=== PATIENT | female | born 1950 | race Caucasian/White ===

== ENCOUNTER → 2016-09-05 | Outpatient (REF) | payer MEDICARE, BC ==
[~2016-09-05] MED LIST: ANAS1TAB PO; GLUC1CAP9 PO; LEVOPOW21; NAPR500T2 PO; RANI15TA PO; [UNRECOGNIZED DRUG - OTHER]; vitamin D2
[2016-09-06 14:14] LABS: HIV SCRN NEGATIVE (NEGATIVE); HIV SCRN1 NEGATIVE (NEGATIVE)
[2016-09-06 14:15] LABS: CONTROL LINE INT CTR LINE PRESENT
== END ==
LOC: M LAB REF 14:08
PROVIDERS: ATTEND Nurse Practitioner Adult Health
DX: Z01.89 Encounter for other specified special examinations (principal)

== ENCOUNTER → 2017-08-08 | Outpatient (CLI) | payer MEDICARE, BC | LOC: M WHC 11:32 | DX: M81.0 Age-related osteoporosis without current pathological fracture (principal); C50.919 Malignant neoplasm of unspecified site of unspecified female breast; C50.812 Malignant neoplasm of overlapping sites of left female breast | CPT/HCPCS: 77080 ==

== ENCOUNTER → 2020-10-25 | Outpatient (CLI) | payer MEDICARE, BC ==
[~2020-10-25] MED LIST changes: -ANAS1TAB PO; +ANAS1TAB2 PO; +CALC-205 PO; +IBUP-1114 PO; +LETR2.5T2 PO; +NAPR-885 PO; -NAPR500T2 PO; +PEPC1TAB5 PO; +PROL60SO SC; +SYNT75TA PO; +VALA1TAB5 PO
--- NOTE | 2020-10-25 12:05 | DEXAMM ---
INDICATION: OSTEOPENIA,BREAST CA. COMPARISON: Comparison DEXA studies August 08, 2017, August 02, 2015, and March 03, 2004.. TECHNIQUE: Bone density was measured using dual-energy x-ray absorptionmetry (DEXA). FINDINGS: AP SPINE L1-L4 BMD 0.973 g/cm2 Young Adult T-Score -1.8 Age Matched Z-Score -0.1. LT FEMUR, TOTAL BMD 0.841 g/cm2 Young Adult T-Score -1.3 Age Matched Z-Score 0.2. LT NECK BMD 0.823 g/cm2 Young Adult T-Score -1.5 Age Matched Z-Score 0.2. RT FEMUR, TOTAL BMD 0.906 g/cm2 Young Adult T-Score -0.8 Age Matched Z-Score 0.7. RT NECK BMD 0.832 g/cm2 Young Adult T-Score -1.5 Age Matched Z-Score 0.3. IMPRESSION: There is low bone density of the spine. There is low bone density of the left hip. There is low bone density of the right hip. The density of the spine has increased 11.3% since the initial exam on March 03, 2004. The density of the spine increased 5.5% since most recent exam on August 08, 2017. The density of the left hip has increased 1.8% since initial exam on March 03, 2004. The density of the left hip has increased 0.8% since most recent exam on August 08, 2017. The density of the right hip has increased 4.4% since the initial exam on March 03, 2004. The density of the right hip has increased 5.5% since the most recent exam on August 08, 2017. FOLLOW-UP: Recommendation for the next bone density exam: 2 years. <Electronically signed by Chino Campbell > 10/25/20 [id number]
== END ==
LOC: M WHC 10:33
PROVIDERS: ATTEND Specialist
DX: M85.88 Other specified disorders of bone density and structure, other site (principal); M85.851 Other specified disorders of bone density and structure, right thigh; M85.852 Other specified disorders of bone density and structure, left thigh; Z85.3 Personal history of malignant neoplasm of breast

== ENCOUNTER → 2021-01-05 | Outpatient (CLI) | payer MEDICARE, BC ==
--- NOTE | 2021-01-05 10:50 | REP ---
INDICATION: PAIN. COMPARISON: Comparison cervical spine radiographs are from January 31, 2016.. TECHNIQUE: Seven views including flexion extension lateral radiographs. FINDINGS: Lateral views done in flexion, extension, and neutral position demonstrate straightening and slight reversal of the normal cervical lordosis. There is reduced flexion extension range of motion but no subluxation or instability is appreciated. These findings are essentially unchanged from the comparison study of January 31, 2016. There is discogenic spurring anteriorly at the each level, most pronounced at C4-5 C5-6 and C6-7. Cervical vertebral body heights are preserved. Alignment is otherwise normal. 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 This is most pronounced on the left at C3-4. Open mouth odontoid view is unremarkable. Oblique images demonstrate mild neural foraminal encroachment on the left at C3-4 due to facet hypertrophy and minimal uncovertebral hypertrophy. On the right, there is mild encroachment at C4-5. These findings are slightly more prominent than on the 2016 prior study. IMPRESSION: Degenerative spondylosis changes as noted above. <Electronically signed by Chino Campbell > 01/05/21 [id number]
--- NOTE | 2021-01-05 10:51 | REP ---
INDICATION: PAIN. COMPARISON: None. TECHNIQUE: Five views of the right knee are provided. FINDINGS: Five views of the right knee demonstrate normal bones, joints, and soft tissues. No fracture or subluxation is seen. No opaque foreign body noted. IMPRESSION: Negative right knee series. <Electronically signed by Chino Campbell > 01/05/21 [id number]
== END ==
LOC: M WUC 10:03
PROVIDERS: ATTEND Nurse Practitioner Adult Health
DX: M47.812 Spondylosis without myelopathy or radiculopathy, cervical region (principal); M54.2 Cervicalgia; M25.561 Pain in right knee

== ENCOUNTER → 2021-03-28 | Outpatient (CLI) | payer MEDICARE, BC ==
[~2021-03-28] MED LIST changes: +CIDA500T2 PO
== END ==
LOC: M LABSMTC 08:43
PROVIDERS: ATTEND Anesthesiology
DX: Z01.812 Encounter for preprocedural laboratory examination (principal); Z20.822 Contact with and (suspected) exposure to COVID-19

== ENCOUNTER 2021-03-31 11:15 | Day surgery (SDC) | payer MEDICARE, BC ==
[~2021-03-31] VITALS: Ht 168.9 cm; Wt 71.6 kg
[~2021-03-31 11:15] MED LIST changes: +NS 1,000 ML IV ONE
[2021-03-31] MEDS ORDERED: propofoL 200 MG/20 ML VIAL As Ordered ONE ×2 (13:04→14:21)
[2021-03-31] MEDS ORDERED: LIDOCAINE 2% 100MG/5ML SDV (FOR ANES.) As Ordered ONE (13:04)
--- NOTE | 2021-03-31 14:30 | ROOR ---
Patient Name: Pati Pierce Procedure Date: 03/31/2021 2:05 PM Date of : 1950 Age: 70 Room: [facility] Gender: Female Note Status: Finalized Procedure: Colonoscopy Indications: Screening for colorectal malignant neoplasm Providers: Pasquale Aguilar Jr, MD Referring MD: Mirna Baltazar NP Requesting Provider: Medicines: Propofol per Anesthesia Complications: No immediate complications. Procedure: Pre-Anesthesia Assessment: - Prior to the procedure, a History and Physical was performed, and patient medications and allergies were reviewed. The patient is competent. The risks and benefits of the procedure and the sedation options and risks were discussed with the patient. All questions were answered and informed consent was obtained. Patient identification and proposed procedure were verified by the physician and the nurse in the pre-procedure area and in the procedure room. Mental Status Examination: alert and oriented. Airway Examination: normal oropharyngeal airway and neck mobility. Respiratory Examination: clear to auscultation. CV Examination: normal. ASA Grade Assessment: II - A patient with mild systemic disease. After reviewing the risks and benefits, the patient was deemed in satisfactory condition to undergo the procedure. The anesthesia plan was to use moderate sedation / analgesia (conscious sedation). Immediately prior to administration of medications, the patient was re-assessed for adequacy to receive sedatives. The heart rate, respiratory rate, oxygen saturations, blood pressure, adequacy of pulmonary ventilation, and response to care were monitored throughout the procedure. The physical status of the patient was re-assessed after the procedure. The Colonoscope was introduced through the anus and advanced to the cecum, identified by appendiceal orifice and ileocecal valve. The colonoscopy was performed without difficulty. The patient tolerated the procedure well. The quality of the bowel preparation was adequate. Findings: The rectum, ascending colon, cecum, appendiceal orifice and ileocecal valve appeared normal. Many polyps were found in the recto-sigmoid colon, sigmoid colon, descending colon and transverse colon. The polyps were small in size. These polyps were removed with a cold snare. Resection and retrieval were complete. Impression: - The rectum, ascending colon, cecum, appendiceal orifice and ileocecal valve are normal. - Many small polyps at the recto-sigmoid colon, in the sigmoid colon, in the descending colon and in the transverse colon, removed with a cold snare. Resected and retrieved. Recommendation: - Discharge patient to home (ambulatory). - Repeat colonoscopy in 5-10 years for surveillance based on pathology results. Procedure Code(s): --- Professional --- 97332, Colonoscopy, flexible; with removal of tumor(s), polyp(s), or other lesion(s) by snare technique Diagnosis Code(s): --- Professional --- Z12.11, Encounter for screening for malignant neoplasm of colon K63.5, Polyp of colon CPT copyright 2019 [employer]. All rights reserved. The codes documented in this report are preliminary and upon lead caster review may be revised to meet current compliance requirements. Pasquale Aguilar MD Pasquale Aguilar Jr, MD 03/31/2021 2:30:30 PM Electronically signed by Pasquale Aguilar Jr, MD Number of Addenda: 0 Note Initiated On: 03/31/2021 2:05 PM Estimated Blood Loss: Estimated blood loss: none.
[2021-03-31 15:00] VITALS: BP 136/73
== END 2021-03-31 15:05 | disposition home or self-care (01) ==
LOC: M OPP 11:15
PROVIDERS: ATTEND Surgery
DX: Z12.11 Encounter for screening for malignant neoplasm of colon (principal); K63.5 Polyp of colon; Z79.899 Other long term (current) drug therapy; Z88.0 Allergy status to penicillin; Z88.8 Allergy status to other drugs, medicaments and biological substances

== ENCOUNTER → 2022-10-04 | Outpatient (REF) | payer MEDICARE, BC ==
[~2022-10-04] MED LIST changes: +FERR1TAB8 PO; -NS 1,000 ML IV ONE
[2022-10-04 17:56] LABS: FERRITIN 86.8 NG/ML (7.3-270.7)
[2022-10-04 17:58] LABS: PERCENT SATURATION 24.6 % (13.2-45.0)
== END ==
LOC: M LAB REF 16:22
PROVIDERS: ATTEND Nurse Practitioner Adult Health
DX: D64.9 Anemia, unspecified (principal)

== ENCOUNTER → 2022-11-13 | Outpatient (CLI) | payer MEDICARE, BC | LOC: M WHC 13:24 | PROVIDERS: ATTEND Nurse Practitioner | DX: M85.89 Other specified disorders of bone density and structure, multiple sites (principal) ==

== ENCOUNTER → 2022-11-28 | Outpatient (REF) | payer MEDICARE, BC ==
[2022-11-28 13:10] LABS: CK-MB VALUE MASS 1.5 NG/ML (<3.6)
[2022-11-28 13:12] LABS: MB/CK RELATIVE INDEX 1.78 (< OR =4)
== END ==
LOC: M LAB REF 12:20
PROVIDERS: ATTEND Nurse Practitioner Family
DX: I44.7 Left bundle-branch block, unspecified (principal)

== ENCOUNTER → 2022-12-28 | Outpatient (CLI) | payer MEDICARE, BC | LOC: M WUC 13:43 | PROVIDERS: ATTEND Nurse Practitioner Family | DX: R06.02 Shortness of breath (principal) ==

== ENCOUNTER → 2023-04-26 | Day surgery (SDC) | payer MEDICARE, BC ==
[~2023-04-26] VITALS: Ht 167.6 cm; Wt 66.0 kg
[~2023-04-26] MED LIST changes: +LEVO88TA3 PO; +NS 1,000 ML IV ONE; +VALS1TAB67 PO; +fentaNYL 100 MCG/2 ML INJECTION As Ordered ONE; +propofoL 200 MG/20 ML VIAL As Ordered ONE
[2023-04-26 10:49] VITALS: TEMP 98.6
[2023-04-26 11:08] VITALS: BP 117/59; O2SAT 98
== END | disposition home or self-care (01) ==
LOC: M OPP 09:18
PROVIDERS: ATTEND Surgery
DX: K30 Functional dyspepsia (principal); K44.9 Diaphragmatic hernia without obstruction or gangrene; Z79.1 Long term (current) use of non-steroidal anti-inflammatories (NSAID); Z79.890 Hormone replacement therapy; Z79.899 Other long term (current) drug therapy; Z88.0 Allergy status to penicillin; Z88.8 Allergy status to other drugs, medicaments and biological substances; Z87.891 Personal history of nicotine dependence
CPT/HCPCS: 43235; J3010

== ENCOUNTER → 2023-08-10 | Outpatient (CLI) | payer MEDICARE, BC ==
[~2023-08-10] MED LIST changes: -NS 1,000 ML IV ONE; -fentaNYL 100 MCG/2 ML INJECTION As Ordered ONE; -propofoL 200 MG/20 ML VIAL As Ordered ONE
== END ==
LOC: M RAD 07:03
PROVIDERS: ATTEND Nurse Practitioner Adult Health
DX: M54.50 Low back pain, unspecified (principal); M47.816 Spondylosis without myelopathy or radiculopathy, lumbar region; M48.061 Spinal stenosis, lumbar region without neurogenic claudication; M47.817 Spondylosis without myelopathy or radiculopathy, lumbosacral region

== ENCOUNTER → 2023-11-13 | Outpatient (CLI) | payer MEDICARE, BC ==
[~2023-11-13] MED LIST changes: +B-1225002 SL
== END ==
LOC: M PLAIMG 07:24
PROVIDERS: ATTEND Nurse Practitioner Adult Health
DX: R01.1 Cardiac murmur, unspecified (principal)